=== PATIENT | male | born 1990 | race Caucasian/White ===

== ENCOUNTER → 2018-07-01 | Outpatient (CLI) | payer BC ==
[~2018-07-01] MED LIST: AZIT250T13 PO; IBUP-1542 PO; SODI75SP NASAL
== END | disposition home or self-care (01) ==
LOC: RAD 16:44
PROVIDERS: ATTEND Internal Medicine
DX: K59.00 Constipation, unspecified (principal)
CPT/HCPCS: 71045; 74018